=== PATIENT | female | born 1975 | race Caucasian/White ===

== ENCOUNTER → 2020-05-01 | Outpatient (CLI) | payer MEDICARE ==
[~2020-05-01] MED LIST: BIOTCAP PO; BREO1INH3 IN; BUSP15TA47 PO; CHLO500TA; CITA20TA2 PO; CYMB1CAP PO; CYMB60CA3 PO; FISH100049 PO; FLUD0.1T; HYDR-3716 PO; HYDR200T3 PO; HYOS0.125 PO; KLON0.5T; LEVO50TA2; LEVOTAB10 PO; LIDO1DIS2 TD; LYRI100C PO; LYRI150C PO; OMEP40CA97 PO; OMNASPR; PLAQ200T PO; PLET50TA3 PO; PRED20TA PO; PROAAER10 INH; PROT1TAB2 PO; PROZ10CA; QUET5TAB PO; RISP0.5T20; RISP2TAB12; ROBA750T4 PO; ROPI1TAB3 PO; SENN8.6T63 PO; SENO8.6T9 PO; SING10TA32 PO; SING5CHW PO; SYMB16INH; TIOT18INH INH; TRAM100T13 PO; VICO5TAB PO; VICO7.5T11 PO; VITA2000 PO; WARF1TAB35 PO; WARF4TAB52 PO; WARF7.5T17 PO; XYZA5TAB PO; ZANA4TAB PO; ZONI25CA13 PO; ZYRTEC PO
== END ==
LOC: M LABSMTC 10:59
PROVIDERS: ATTEND Anesthesiology
DX: Z01.812 Encounter for preprocedural laboratory examination (principal); Z20.828 Contact with and (suspected) exposure to other viral communicable diseases
CPT/HCPCS: C9803; U0003

== ENCOUNTER 2020-05-06 10:08 | Day surgery (SDC) | payer MEDICARE ==
[~2020-05-06] VITALS: Ht 167.6 cm; Wt 70.4 kg
[~2020-05-06 10:08] MED LIST changes: +LIDOCAINE 2% 100MG/5ML SDV (FOR ANES.) As Ordered ONE; +NS 1,000 ML IV ONE; +propofoL 200 MG/20 ML VIAL As Ordered ONE
[2020-05-06] MEDS ORDERED: fentaNYL 100 MCG/2 ML INJECTION (J3010) As Ordered ONE (10:18)
[2020-05-06] MEDS ORDERED: GLUCAGON INJ 1MG VIAL As Ordered ONE (12:02)
[2020-05-06] MEDS ORDERED: propofoL 200 MG/20 ML VIAL As Ordered ONE (12:08)
[2020-05-06 12:52] VITALS: BP 101/54
--- NOTE | 2020-05-11 11:38 | ROOR ---
Patient Name: Aminata Beauchamp Procedure Date: 05/06/2020 11:39 AM Date of : 1975 Age: 44 Room: [facility] Gender: Female Note Status: Finalized Procedure: Colonoscopy Indications: Abnormal CT of the GI tract Providers: Mauri PENALOZA MD Referring MD: Areli Flood Requesting Provider: Medicines: Monitored Anesthesia Care Complications: No immediate complications. Procedure: Pre-Anesthesia Assessment: - The heart rate, respiratory rate, oxygen saturations, blood pressure, adequacy of pulmonary ventilation, and response to care were monitored throughout the procedure. The Colonoscope was introduced through the anus and advanced to 10 cm into the ileum. The colonoscopy was performed without difficulty. The patient tolerated the procedure well. The quality of the bowel preparation was fair. Findings: The perianal and digital rectal examinations were normal. A 5 mm polyp was found in the cecum. The polyp was sessile. The polyp was removed with a cold snare. Resection and retrieval were complete. The exam was otherwise normal throughout the examined colon. The terminal ileum appeared normal. Small Internal Hemorrhoids. Impression: - Preparation of the colon was fair. - One 5 mm polyp in the cecum, removed with a cold snare. Resected and retrieved. - The examined portion of the ileum was normal. - Small Internal Hemorrhoids. Recommendation: - Repeat colonoscopy in 2 years because the bowel preparation was suboptimal. - Resume Coumadin (warfarin) today and Lovenox (enoxaparin) today at prior doses. Refer to managing physician for further adjustment of therapy. - Telephone endoscopist for pathology results in 2 weeks. Mauri Penaloza MD Mauri PENALOZA MD 05/06/2020 12:22:31 PM Electronically signed by Mauri PENALOZA MD Number of Addenda: 0 Note Initiated On: 05/06/2020 11:39 AM Estimated Blood Loss: Estimated blood loss: none.
--- NOTE | 2020-05-11 11:38 | ROOR ---
Patient Name: Aminata Beauchamp Procedure Date: 05/06/2020 11:38 AM Date of : 1975 Age: 44 Room: [facility] Gender: Female Note Status: Finalized Procedure: Upper GI endoscopy Indications: Functional Dyspepsia, Dysphagia Providers: Mauri PENALOZA MD Referring MD: Areli Flood Requesting Provider: Medicines: Monitored Anesthesia Care Complications: No immediate complications. Procedure: Pre-Anesthesia Assessment: - The heart rate, respiratory rate, oxygen saturations, blood pressure, adequacy of pulmonary ventilation, and response to care were monitored throughout the procedure. The Endoscope was introduced through the mouth, and advanced to the second part of duodenum. The upper GI endoscopy was accomplished without difficulty. The patient tolerated the procedure well. Findings: The esophagus was normal. The stomach was normal. The examined duodenum was normal. Two biopsies were obtained in the middle third of the esophagus with cold forceps for evaluation of eosinophilic esophagitis. Impression: - Normal esophagus. (No stricture seen) - Normal stomach. - Normal examined duodenum. - Two biopsies were obtained in the middle third of the esophagus. Recommendation: - Observe patient's clinical course. - Telephone endoscopist for pathology results in 2 weeks. Mauri Penaloza MD Mauri PENALOZA MD 05/06/2020 11:58:36 AM Electronically signed by Mauri PENALOZA MD Number of Addenda: 0 Note Initiated On: 05/06/2020 11:38 AM Estimated Blood Loss: Estimated blood loss: none.
== END 2020-05-06 13:03 | disposition home or self-care (01) ==
LOC: M OPP 10:08
PROVIDERS: ATTEND Internal Medicine Gastroenterology
DX: D12.0 Benign neoplasm of cecum (principal); R93.3 Abnormal findings on diagnostic imaging of other parts of digestive tract; K30 Functional dyspepsia; R13.10 Dysphagia, unspecified; K21.9 Gastro-esophageal reflux disease without esophagitis; G45.9 Transient cerebral ischemic attack, unspecified; I95.1 Orthostatic hypotension; M32.9 Systemic lupus erythematosus, unspecified; J44.9 Chronic obstructive pulmonary disease, unspecified; Z79.01 Long term (current) use of anticoagulants; Z79.899 Other long term (current) drug therapy; Z88.0 Allergy status to penicillin
CPT/HCPCS: 43239; 45385; 88305; J1610; J3010

== ENCOUNTER → 2020-12-15 | Outpatient (REF) | payer MEDICARE, MEDICAID ==
[~2020-12-15] MED LIST changes: -LIDOCAINE 2% 100MG/5ML SDV (FOR ANES.) As Ordered ONE; -NS 1,000 ML IV ONE; +QUET50TA3 PO; -QUET5TAB PO; -propofoL 200 MG/20 ML VIAL As Ordered ONE
[2020-12-15 14:17] LABS: BASO # 0.1 10^3/uL (0.0-0.2); BASO % 0.8 % (0.0-1.0); EOS # 0.2 10^3/uL (0.0-0.5); EOS % 2.1 % (0.0-3.0); HEMATOCRIT 44.9 % (36.0-47.0); LYMPH # 3.3 10^3/uL (1.5-5.0); LYMPH % 31.6 % (24.0-44.0); MEAN CORPUSCULAR HEMOGLOBIN 32.5 pg (27.0-33.0); MEAN CORPUSCULAR HGB CONC 33.4 g/dl (32.0-36.5); MEAN CORPUSCULAR VOLUME 97.2 fl (80.0-96.0); MONO # 0.6 10^3/uL (0.0-0.8); MONO % 5.8 % (2.0-8.0); NEUTROPHILS # 6.2 10^3/uL (1.5-8.5); NEUTROPHILS % 59.5 % (36.0-66.0); PLATELET COUNT, AUTOMATED 361 10^3/uL (150-450); RED BLOOD COUNT 4.62 10^6/uL (4.00-5.40); WHITE BLOOD COUNT 10.3 10^3/uL (4.0-10.0)
== END ==
LOC: M SFHCPLAZ 10:25
PROVIDERS: ATTEND Family Medicine
DX: D72.829 Elevated white blood cell count, unspecified (principal)
CPT/HCPCS: 36415; 85025; G0463

== ENCOUNTER → 2021-05-25 | Outpatient (CLI) | payer MEDICARE, MEDICAID ==
[~2021-05-25] MED LIST changes: +OMEP40CA4 PO; -OMEP40CA97 PO; -QUET50TA3 PO; +QUET50TA4 PO
--- NOTE | 2021-05-25 12:32 | REP ---
INDICATION: ACUTE PAIN LT HIP / LBP CONSUELO W/ SCIATICA injury December 2019 in March 2020, pain COMPARISON: None. TECHNIQUE: Coronal T1, STIR through the pelvis, axial, coronal, sagittal T2 fat sat left hip. FINDINGS: There is mild inferior sacroiliitis bilaterally. Otherwise, the visualized osseous structures demonstrate normal bone marrow signal. There is no other evidence of bone marrow edema or occult fracture. There is no evidence of avascular necrosis. There appears to be a tear of the anterior labrum. I also suspect a tear of the posterior labrum. There is no paralabral cyst. There is mild diffuse chondromalacia. There are findings compatible with mild bilateral greater trochanteric tendonobursitis. There is no joint effusion. The visualized intrapelvic structures are unremarkable. IMPRESSION: There appears to be a tear of the anterior labrum, and I also suspect a tear of the posterior labrum. These could be confirmed with MR arthrography. Mild diffuse chondromalacia. Mild bilateral greater trochanteric tendonobursitis. Mild bilateral inferior sacroiliitis. <Electronically signed by Sheldon Napier > 05/25/21 [id number]
--- NOTE | 2021-05-26 09:06 | REPVR ---
PROCEDURE INFORMATION: Exam: MR Lumbar Spine Without Contrast Exam date and time: 05/25/2021 12:00 PM Age: 45 years old Clinical indication: Low back pain; Additional info: Acute pain lt hip / lbp keren w/ sciatica TECHNIQUE: Imaging protocol: Multiplanar magnetic resonance images of the lumbar spine without intravenous contrast. COMPARISON: CT Spine, lumbar w/o contrast 05/13/2016 11:40 AM FINDINGS: Vertebrae: Evaluation of the marrow demonstrates no evidence of acute fracture line, high-grade compression deformity, worrisome malalignment, or marrow edema. Loss of the lordosis suggests spasm. Moderate posterior hypertrophic changes at multiple levels. No significant scoliosis. Generally benign marrow signal on the T1 weighted images. I favor focal Modic type changes in the endplates at L2 inferior and inferiorly. No displaced fracture line. A small focus of marrow edema might also be entertained. Small hemangioma in T12. Spinal epidural space: There is no evidence of arachnoiditis or epidural fluid. Spinal cord: The conus terminates at L1-L2 without abnormal cord signal. L1-L2: No significant disc disease. No significant spinal canal stenosis. No neural foraminal stenosis. L2-L3: No significant disc disease. No significant spinal canal stenosis. No neural foraminal stenosis. L3-L4: There is mild broad bulging disc at L3-L4 without significant mass effect. L4-L5: At L4-L5, there is mild broad-based bulging of the disc with an annular tear. No significant central stenosis. Minimal right-sided foraminal encroachment. L5-S1: At L5-S1, there is a broadly bulging disc approaching but not definitively contacting the traversing S1 nerve roots. Mild central stenosis with minimal bilateral foraminal encroachment. Sacrum/coccyx: Symmetric SI joints. Soft tissues: Mild paraspinal muscular atrophy without paraspinal mass or hematoma. Other findings: Disc heights and water content are well maintained. IMPRESSION: 1. Limited degenerative changes and disc abnormalities with mild mass effect at L4-L5 and L5-S1. No high-grade central or foraminal encroachment. 2. Question Modic type changes versus focal edema along the anterior inferior endplate of L2. No displaced fracture line. 3. No epidural fluid or paraspinal hematoma. Electronically signed by: Waqas Austin On 05/26/2021 09:06:11 AM
== END ==
LOC: M PLAIMG 10:49
PROVIDERS: ATTEND Family Medicine
DX: S73.192A Other sprain of left hip, initial encounter (principal); Y92.9 Unspecified place or not applicable; Y93.9 Activity, unspecified; Y99.9 Unspecified external cause status; M94.252 Chondromalacia, left hip; M25.552 Pain in left hip; M54.42 Lumbago with sciatica, left side

== ENCOUNTER → 2021-06-12 | Outpatient (CLI) | payer MEDICARE, MEDICAID ==
--- NOTE | 2021-06-12 11:36 | REP ---
INDICATION: ABNORMAL FINDING OF LUNG FIELD COMPARISON: Multiple the latest 05/30/2020 also without contrast TECHNIQUE: Standard helical technique without contrast FINDINGS: The mediastinum and pulmonary petr are stable. No mass or adenopathy has developed. There are no pleural or pericardial effusions. There is no significant change in appearance of the imaged upper abdomen or imaged osseous structures. Evaluation of the lung no shows multiple stable bilateral pulmonary nodules. No new abnormal nodules, masses, or opacities have developed. Note is again made of mild bilateral upper lobe emphysematous changes. IMPRESSION: Stable CT examination of the chest as described above. According to the revised Fleischner society criteria these nodules represent lung rads category 2 nodules. Follow-up as per the revised Fleischner society criteria. <Electronically signed by Reese Roa > 06/12/21 [id number]
== END ==
LOC: M PLAIMG 10:11
PROVIDERS: ATTEND Physician Assistant
DX: R91.8 Other nonspecific abnormal finding of lung field (principal)

== ENCOUNTER → 2021-07-03 | Outpatient (REF) | payer MEDICARE, MEDICAID ==
[~2021-07-03] MED LIST changes: -CYMB60CA3 PO; +CYMB60CA4 PO
[2021-07-03 18:46] LABS: APPEARANCE, URINE HAZY (CLEAR); BACTERIA, URINE AUTO NEGATIVE (NEGATIVE); BILIRUBIN, URINE AUTO NEGATIVE (NEGATIVE); BLOOD, URINE BLOOD NEGATIVE (NEGATIVE); CALCIUM OXALATE CRYSTALS SMALL; COLOR, URINE YELLOW (YELLOW); GLUCOSE, URINE (UA) AUTO NEGATIVE (NEGATIVE); KETONE, URINE AUTO NEGATIVE (NEGATIVE); LEUKOCYTE ESTERASE, URINE AUTO NEGATIVE (NEGATIVE); MUCUS, URINE SMALL (NEGATIVE); NITRITE, URINE AUTO NEGATIVE (NEGATIVE); PROTEIN, URINE AUTO NEGATIVE (NEGATIVE); RBC, URINE AUTO 2 /HPF (0-3); SPECIFIC GRAVITY URINE AUTO 1.018 (1.002-1.035); SQUAMOUS EPITHELIAL CELL UR AU 2 /HPF (0-6); UROBILINOGEN, URINE AUTO 0.2 mg/dL (0.0-2.0); WBC, URINE AUTO 1 /HPF (0-3)
[2021-07-03 18:47] LABS: BASO # 0.1 10^3/uL (0.0-0.2); BASO % 0.5 % (0.0-1.0); EOS # 0.2 10^3/uL (0.0-0.5); EOS % 1.5 % (0.0-3.0); HEMOGLOBIN 14.6 g/dl (12.0-15.5); LYMPH # 4.3 10^3/uL (1.5-5.0); LYMPH % 36.2 % (24.0-44.0); MEAN CORPUSCULAR HEMOGLOBIN 31.9 pg (27.0-33.0); MEAN CORPUSCULAR HGB CONC 33.2 g/dl (32.0-36.5); MEAN CORPUSCULAR VOLUME 96.3 fl (80.0-96.0); MONO # 0.7 10^3/uL (0.0-0.8); MONO % 5.8 % (2.0-8.0); NEUTROPHILS # 6.6 10^3/uL (1.5-8.5); NEUTROPHILS % 55.6 % (36.0-66.0); PLATELET COUNT, AUTOMATED 414 10^3/uL (150-450); RED BLOOD COUNT 4.57 10^6/uL (4.00-5.40); WHITE BLOOD COUNT 11.8 10^3/uL (4.0-10.0)
[2021-07-03 19:11] LABS: TOTAL PROTEIN,RANDOM URINE 7.6 MG/DL (0.0-12.0)
[2021-07-03 19:12] LABS: MAGNESIUM LEVEL 2.1 MG/DL (1.8-2.4)
[2021-07-07 16:09] LABS: ANCA-ATYPICAL <1:20 titer (Neg:<1:20); COMPLEMENT TOTAL (CH50) > 60 U/mL (>41); CYTOPLASMIC NEUTROP AB ANCA-C <1:20 titer (Neg:<1:20); PERINUCLEAR AB ANCA-P <1:20 titer (Neg:<1:20)
== END ==
LOC: M SFHCRHEU 14:35
PROVIDERS: ATTEND Internal Medicine
DX: R76.8 Other specified abnormal immunological findings in serum (principal); M79.10 Myalgia, unspecified site; Z79.899 Other long term (current) drug therapy
CPT/HCPCS: 81001; 82306; 82550; 82570; 82607; 83540; 83735; 84100; 84156; 85025; 86160; 86162; 86256; G0463

== ENCOUNTER → 2021-12-29 | Outpatient (REF) | payer MEDICARE, MEDICAID | LOC: M LAB REF 16:56 | PROVIDERS: ATTEND Physician Assistant | DX: J06.9 Acute upper respiratory infection, unspecified (principal) ==

== ENCOUNTER → 2022-10-12 | Outpatient (CLI) | payer MEDICARE, MEDICAID | LOC: M SOG 08:17 | PROVIDERS: ATTEND Orthopaedic Surgery | DX: M25.552 Pain in left hip (principal) ==

== ENCOUNTER 2023-03-01 07:26 | Day surgery (SDC) | payer MEDICARE, MEDICAID ==
[~2023-03-01] VITALS: Ht 167.6 cm; Wt 70.4 kg
[~2023-03-01 07:26] MED LIST changes: -HYDR200T3 PO; +HYDR200T46 PO; +MONT-5 PO; +NS 1,000 ML IV ONE; -SING10TA32 PO; +propofoL 500 MG/50 ML VIAL As Ordered ONE
[2023-03-01] MEDS ORDERED: fentaNYL 100 MCG/2 ML INJECTION As Ordered ONE (08:44)
[2023-03-01 09:49] VITALS: BP 92/65; TEMP 96.1; O2SAT 100
== END 2023-03-01 09:52 | disposition home or self-care (01) ==
LOC: M OPP 07:26
PROVIDERS: ATTEND Internal Medicine Gastroenterology
DX: K57.30 Diverticulosis of large intestine without perforation or abscess without bleeding (principal); K64.8 Other hemorrhoids; K63.3 Ulcer of intestine; K52.89 Other specified noninfective gastroenteritis and colitis; R13.10 Dysphagia, unspecified; K29.80 Duodenitis without bleeding; K22.9 Disease of esophagus, unspecified; Z79.01 Long term (current) use of anticoagulants; Z79.52 Long term (current) use of systemic steroids; Z79.899 Other long term (current) drug therapy; Z88.0 Allergy status to penicillin; Z88.1 Allergy status to other antibiotic agents; Z91.040 Latex allergy status
CPT/HCPCS: 43239; 43249; 45380; 88305; J3010

== ENCOUNTER → 2023-06-07 | Outpatient (CLI) | payer MEDICARE, MEDICAID ==
[~2023-06-07] MED LIST changes: +LIDOCAINE 1% MDV 20ML VIAL As Ordered ONE; -NS 1,000 ML IV ONE; -ROPI1TAB3 PO; +ROPI1TAB73 PO; -propofoL 500 MG/50 ML VIAL As Ordered ONE
[2023-06-07 13:45] VITALS: BP 102/64; TEMP 97.9; O2SAT 99
== END ==
LOC: M IRPRO 13:18
PROVIDERS: ATTEND Otolaryngology
DX: R22.1 Localized swelling, mass and lump, neck (principal)

== ENCOUNTER → 2023-11-11 | Outpatient (CLI) | payer MEDICARE, MEDICAID ==
[~2023-11-11] MED LIST changes: +ISOVUE-370 76% 100ML VIAL As Ordered ONE; -LIDOCAINE 1% MDV 20ML VIAL As Ordered ONE
== END ==
LOC: M RAD 12:03
PROVIDERS: ATTEND Otolaryngology
DX: K11.20 Sialoadenitis, unspecified (principal)
CPT/HCPCS: 70491; Q9967

== ENCOUNTER 2024-01-29 11:26 | Emergency (ER) | payer MEDICARE, MEDICAID ==
[~2024-01-29] VITALS: Ht 172.7 cm; Wt 76.4 kg
[~2024-01-29 11:26] MED LIST changes: -ISOVUE-370 76% 100ML VIAL As Ordered ONE
[2024-01-29] MEDS ORDERED: PRED20TA (11:49)
[2024-01-29] MEDS ORDERED: ALBU8.5H (11:49)
[2024-01-29] MEDS ORDERED: CLIN-250 (11:49)
[2024-01-29] MEDS ORDERED: MECL-86 (11:49)
[2024-01-29] MEDS ORDERED: METH-1165 (11:49)
[2024-01-29] MEDS ORDERED: ACETAMINOPHEN 325MG/10.15ML UDC PO ONE (12:35)
[2024-01-29] MEDS: NS 1,000 ML IV ONE ×2 (13:26→14:35)
[2024-01-29] MEDS: diphenhydrAMINE 50MG/ML VIAL IV ONE (13:26)
[2024-01-29] MEDS: METOCLOPRAMIDE INJ 10MG/2ML VIAL IV ONE (13:27)
[2024-01-29] MEDS: ACETAMINOPHEN 325 MG TAB PO ONE (13:29)
[2024-01-29 15:30] VITALS: BP 96/55; TEMP 96.8; O2SAT 100
== END 2024-01-29 15:47 | disposition home or self-care (01) ==
LOC: EDSEX 11:26 → EDBD 11:26 → M ED 11:26
DX: H92.03 Otalgia, bilateral (principal); G44.209 Tension-type headache, unspecified, not intractable; I95.9 Hypotension, unspecified; F17.210 Nicotine dependence, cigarettes, uncomplicated; F12.10 Cannabis abuse, uncomplicated; Z88.0 Allergy status to penicillin; Z88.1 Allergy status to other antibiotic agents; Z88.8 Allergy status to other drugs, medicaments and biological substances; Z91.040 Latex allergy status; Z79.51 Long term (current) use of inhaled steroids; Z79.2 Long term (current) use of antibiotics; Z79.52 Long term (current) use of systemic steroids; Z79.899 Other long term (current) drug therapy
CPT/HCPCS: 87486; 87581; 87633; 87798; 96361; 96374; 96375; 99284; J1200; J2765

== ENCOUNTER 2024-02-11 13:04 | Day surgery (SDC) | payer MEDICARE, MEDICAID ==
[~2024-02-11] VITALS: Ht 168.9 cm; Wt 76.4 kg
[~2024-02-11 13:04] MED LIST changes: +ALBU8.5H; +CLIN-250; +LOVE0.4I2 SC; +MECL-86; +METH-1165; +PRED20TA
[2024-02-11] MEDS: LR 1,000 ML IV SCH (14:01)
[2024-02-11 14:02] LABS: INR 1.02; PROTHROMBIN TIME 13.1 SECONDS (12.5-14.5)
[2024-02-11] MEDS: PHENYLEPHRINE 0.5% NASAL SPRAY 15 ML As Ordered ONE (18:39)
[2024-02-11] MEDS: CIPRODEX OTIC SUSP 7.5ML As Ordered ONE (18:39)
[2024-02-11] MEDS ORDERED: ONDANSETRON 4MG 2ML VIAL As Ordered ONE (18:41)
[2024-02-11] MEDS ORDERED: LIDOCAINE 2% 100MG/5ML SDV (FOR ANES.) As Ordered ONE (18:41)
[2024-02-11] MEDS ORDERED: fentaNYL 100 MCG/2 ML INJECTION As Ordered ONE (18:41)
[2024-02-11] MEDS ORDERED: propofoL 200 MG/20 ML VIAL As Ordered ONE (18:41)
[2024-02-11] MEDS ORDERED: MIDAZOLAM INJ 2MG/2ML VIAL As Ordered ONE (18:41)
[2024-02-11] MEDS ORDERED: KETOROLAC 60MG 2ML VIAL As Ordered ONE (18:41)
[2024-02-11] MEDS ORDERED: fentaNYL 100 MCG/2 ML INJECTION IV PRN (18:50)
[2024-02-11] MEDS ORDERED: ONDANSETRON 4MG 2ML VIAL IV PRN (18:50)
[2024-02-11] MEDS: oxyCODONE 5MG TAB PO PRN (19:10)
[2024-02-11 19:31] VITALS: BP 106/56; TEMP 97.6; O2SAT 100
== END 2024-02-11 19:46 | disposition home or self-care (01) ==
LOC: M SDC 13:04
PROVIDERS: ATTEND Otolaryngology
DX: H69.93 Unspecified Eustachian tube disorder, bilateral (principal); H92.03 Otalgia, bilateral; Z86.73 Personal history of transient ischemic attack (TIA), and cerebral infarction without residual deficits; Z91.040 Latex allergy status; Z88.0 Allergy status to penicillin; Z88.8 Allergy status to other drugs, medicaments and biological substances; Z79.899 Other long term (current) drug therapy; Z79.01 Long term (current) use of anticoagulants; F17.210 Nicotine dependence, cigarettes, uncomplicated
CPT/HCPCS: 36415; 69436; 85610; J1100; J1885; J2250; J2405; J3010

== ENCOUNTER → 2024-05-11 | Outpatient (CLI) | payer MEDICARE, MEDICAID | LOC: M WHC 09:32 | PROVIDERS: ATTEND Otolaryngology | DX: D11.0 Benign neoplasm of parotid gland (principal) ==

== ENCOUNTER → 2024-11-12 | Outpatient (CLI) | payer MEDICAID, MEDICARE | LOC: M RAD 15:34 | PROVIDERS: ATTEND Otolaryngology | DX: D11.0 Benign neoplasm of parotid gland (principal); K11.20 Sialoadenitis, unspecified ==

== ENCOUNTER → 2025-05-24 | Outpatient (CLI) | payer MEDICARE, OTHER ==
[~2025-05-24] MED LIST changes: +BIOT5CAP9 PO; -BIOTCAP PO
== END ==
LOC: M RAD 14:18
PROVIDERS: ATTEND Otolaryngology
DX: D11.0 Benign neoplasm of parotid gland (principal)